=== PATIENT | male | born 1940 | race Caucasian/White ===

== ENCOUNTER 2016-09-18 04:48 | Emergency (ER) | payer OTHER ==
[~2016-09-18] VITALS: Ht 182.9 cm; Wt 57.7 kg
[~2016-09-18 04:48] MED LIST: ADVAIR 250/501 DISK IH; ADVAIR HFA120 INHALA IH; AFEDITAB CR30 MG; ALBUTEROL2.5 MG/3 M IH; ALLER-EASE180 MG PO; ARICEPT10 MG PO; ARICEPT5 MG PO; ASPIR 8181 M1 PO; ASPIRIN81 M1 PO; ASPIRIN81 M2; Advair HFA 115/21 IH; Aricept PO; Aspirin E.C. PO; CEFTIN500 MG PO; CHANTIX1 MG PO; CLOBETASOL PROP60 GM TP; CLONAZEPAM0.125 MG PO; CYMBALTA30 MG PO; CYMBALTA60 MG PO; Cymbalta PO; DONEPEZIL HCL10 MG PO; DURAGESIC100 MICROG; DURAGESIC75 MCG TD; EMBELINE15 GM TP; FENTANYL1 EAC3; FLAGYL500 MG PO; FLOMAX0.4 MG PO; FLORINEF ACETA0.1 MG PO; GABAPENTIN300 MG PO; HYDROCHLOROTH12.5 M3 PO; Keflex PO; LASIX20 MG PO; LEVAQUIN750 MG PO; LEVOFLOXACIN750 MG PO; LEVOTHROID175 MCG; LEVOTHYROXINE175 MCG PO; LEVOTHYROXINE200 MC1 PO; LISINOPRIL; LISINOPRIL20 MG PO; LOW DOSE ASPIRI81 M1 PO; LOW DOSE ASPIRI81 M2 PO; LYRICA50 MG PO; Levothroid,Synthroid PO; MINOCYCLINE HC100 MG PO; NEURONTIN300 MG PO; NEURONTIN400 MG PO; NITROGLYCERIN0.3 MG; NITROSTAT0.3 MG SL; NITROSTAT0.4 MG SL; NORVASC2.5 MG PO; Neurontin PO; OXYBUTYNIN CHLO15 MG PO; OXYCODONE-APAP1 EAC6 PO; OXYCODONE-APAP1 EACH; Omnicef PO; PERCOCET 10/1 TABLET; PERCOCET 10/1 TABLET PO; PERCOCET 5/31 TABLET PO; PERCOCET 7.51 TABLET PO; PREDNISONE10 MG PO; PREDNISONE20 MG PO; PROAIR HFA8.5 GM; PROAIR HFA8.5 GM IH; PROVENTIL,2.5 MG/0.5 IH; PROVENTIL,2.5 MG/3 M IH; Percocet 5/325,Endoc PO; Proair HFA IH; SALT SUPPLEMENT; SODIUM CHLORIDE PO; SODIUM CHLORIDE1 G1 PO; SPIRIVA1 INHALATI IH; SYMBICORT60 INHALAT; SYMBICORT60 INHALAT IH; SYNTHROID150 MCG PO; SYNTHROID175 MCG PO; Senokot S,Pericolace PO; TAMSULOSIN HCL0.4 MG; TAMSULOSIN HCL0.4 MG PO; TEMOVATE 0.05%30 GM TP; THERMOTABS1 TABLET PO; TOPROL XL25 MG PO; TYLENOL EXTRA500 MG PO; TYLENOL REGULA325 MG PO; Temovate 0.05% Cream TP; Theragran PO; VENTOLIN HFA18 GM IH; ZESTRIL5 MG PO; ZITHROMAX250 MG PO; ZOFRAN ODT4 MG PO; Zestril,Prinivil PO; Zithromax PO; [UNRECOGNIZED DRUG - OTHER] TP
[2016-09-18 05:54] LABS: HEMATOCRIT 40.6 % (38.0-50.0); MCH 34.6 PG (29.0-34.0); MCHC 34.7 G/DL (30.0-36.0); MCV 99.8 FL (86-99); MEAN PLAT.VOLUME 9.6 uM^3 (9.0-12.4); PLATELET COUNT 214 K/uL (156-360); RBC DIS.WIDTH-CV 13.6 % (11.8-14.6); RBC DIS.WIDTH-SD 49.9 % (39-53); RED BLOOD COUNT 4.07 M/uL (4.00-5.50); WHITE BLOOD COUNT 6.1 K/uL (4.1-10.2)
[2016-09-18 05:59] LABS: CHLORIDE 99 mEq/L (99-109); POTASSIUM 3.2 mEq/L (3.7-5.4); SODIUM 131 mEq/L (136-147)
[2016-09-18 06:01] LABS: GLUCOSE 72 mg/dL (70-99)
[2016-09-18 06:03] LABS: ANION GAP 11 MEQ/L (2-14); TOTAL BILIRUBIN 0.6 mg/dL (0.0-1.0)
[2016-09-18 06:05] LABS: ALKALINE PHOSPHATASE 44 IU/L (3-129); GFR ESTIMATE (CALCULATED) > 59 mL/min/
[2016-09-18 06:06] LABS: UREA NITROGEN (BUN) 13 mg/dL (9-23)
[2016-09-18 09:39] LABS: C DIFF TOXIN NEGATIVE (NEGATIVE)
[2016-09-18 10:00] LABS: PROBE CHECK PASS; SPECIMEN PROCESSING CONTROL PASS
[2016-09-18 10:22] VITALS: BP 168/94
== END 2016-09-18 10:35 | disposition home or self-care (01) ==
LOC: EME → EDBD 04:48 → EME 04:48
PROVIDERS: Emergency Medicine
DX: R19.7 Diarrhea, unspecified (principal); J45.909 Unspecified asthma, uncomplicated; J44.9 Chronic obstructive pulmonary disease, unspecified; G89.29 Other chronic pain; I10 Essential (primary) hypertension; E03.9 Hypothyroidism, unspecified; G47.30 Sleep apnea, unspecified; F17.200 Nicotine dependence, unspecified, uncomplicated
CPT/HCPCS: 80053; 85027; 86850; 86900; 86901; 87493; 99281; 99285; J2270

== ENCOUNTER 2016-12-01 14:07 | Inpatient (IN) | payer OTHER ==
[~2016-12-01] VITALS: Ht 182.9 cm; Wt 65.8 kg
[2016-12-01 14:47] LABS: HEMATOCRIT 36.7 % (38.0-50.0); MCH 35.1 PG (29.0-34.0); MCHC 34.1 G/DL (30.0-36.0); MEAN PLAT.VOLUME 9.9 uM^3 (9.0-12.4); PLATELET COUNT 156 K/uL (156-360); RBC DIS.WIDTH-CV 14.9 % (11.8-14.6); RBC DIS.WIDTH-SD 57.4 % (39-53); RED BLOOD COUNT 3.56 M/uL (4.00-5.50); WHITE BLOOD COUNT 4.9 K/uL (4.1-10.2)
[2016-12-01 14:59] LABS: ANION GAP 5 MEQ/L (2-14); CHLORIDE 94 MEQ/L (99-109); POTASSIUM 4.7 MEQ/L (3.7-5.4); SAMPLE HEMOLYSIS CHECK 0; SAMPLE ICTERIC CHECK 0; SAMPLE LIPEMIA CHECK 0; SODIUM 125 MEQ/L (136-147); TOTAL BILIRUBIN 0.5 MG/DL (0.0-1.0)
[2016-12-01 15:05] LABS: ALKALINE PHOSPHATASE 51 IU/L (3-129); GFR ESTIMATE (CALCULATED) > 59 mL/min/; GLUCOSE 80 mg/dL (70-99); UREA NITROGEN (BUN) 20 mg/dL (9-23)
[2016-12-01 15:11] LABS: MCV 103.1 FL (86-99)
[2016-12-01 16:32] LABS: ADD MIUA? NO; BILIRUBIN NEGATIVE; BLOOD NEGATIVE; COLOR YELLOW ((YELLOW)); GLUCOSE (STRIP) NEGATIVE; KETONES NEGATIVE; LEUKOCYTES NEGATIVE; NITRITE NEGATIVE; PROTEIN (STRIP) NEGATIVE; SPECIFIC GRAVITY 1.015 (1.000-1.030); UCUL ADDED? NO; UROBILINOGEN 0.2 MG/DL (0.2-1.0)
[2016-12-01 17:00] LABS: LIPASE 8 U/L (1.0-51.0)
[2016-12-01 23:31] VITALS: BP 157/101
[2016-12-01 23:45] VITALS: BP 157/101
[2016-12-02] VITALS (24 sets, daily range): BP systolic 116–186; BP diastolic 64–103
[2016-12-02 00:55] LABS: BASE EXCESS -3.7 mEq/L (-3 to +3); BICARBONATE 22.7 mEq/L (22-26); COMMENTS - BLOOD GASES A+C+; DEVICE VENT; METHEMOGLOBIN 1.3 % (0-1.5); PCO2 45 mm Hg (35-45); PO2 67 mm Hg (80-100); SITE LR; pH 7.31 (7.35-7.45)
[2016-12-02 00:56] LABS: FI02 45 %; MODE SPONT; PEEP 5 CM/H20; PRES. SUPPORT 20 CM/H2O; TOTAL RESP RATE 11 resp/min
[2016-12-02 01:37] LABS: METH RESISTANT S AUREUS PCR NEGATIVE (NEGATIVE)
[2016-12-02 01:45] LABS: PROBE CHECK PASS; SPECIMEN PROCESSING CONTROL PASS
[2016-12-02 06:05] LABS: HEMATOCRIT 37.9 % (38.0-50.0); MCH 35.8 PG (29.0-34.0); MCHC 34.3 G/DL (30.0-36.0); MCV 104.4 FL (86-99); MEAN PLAT.VOLUME 10.4 uM^3 (9.0-12.4); PLATELET COUNT 147 K/uL (156-360); RBC DIS.WIDTH-CV 14.9 % (11.8-14.6); RBC DIS.WIDTH-SD 58.6 % (39-53); RED BLOOD COUNT 3.63 M/uL (4.00-5.50); WHITE BLOOD COUNT 6.6 K/uL (4.1-10.2)
[2016-12-02 06:19] LABS: ANION GAP 7 MEQ/L (2-14); CHLORIDE 98 MEQ/L (99-109); GFR ESTIMATE (CALCULATED) > 59 mL/min/; MAGNESIUM 1.4 mg/dl (1.3-2.7); SAMPLE HEMOLYSIS CHECK 0; SAMPLE ICTERIC CHECK 0; SAMPLE LIPEMIA CHECK 0; SODIUM 130 MEQ/L (136-147); UREA NITROGEN (BUN) 13 mg/dL (9-23)
[2016-12-02 06:21] LABS: GLUCOSE 116 mg/dL (70-99); POTASSIUM 3.7 MEQ/L (3.7-5.4)
[2016-12-03] VITALS (9 sets, daily range): BP systolic 117–161; BP diastolic 60–89
[2016-12-03 06:06] LABS: HEMATOCRIT 38.7 % (38.0-50.0); MCH 35.7 PG (29.0-34.0); MCHC 35.7 G/DL (30.0-36.0); MEAN PLAT.VOLUME 10.3 uM^3 (9.0-12.4); PLATELET COUNT 161 K/uL (156-360); RBC DIS.WIDTH-CV 14.7 % (11.8-14.6); RBC DIS.WIDTH-SD 54.4 % (39-53); RED BLOOD COUNT 3.87 M/uL (4.00-5.50); WHITE BLOOD COUNT 4.6 K/uL (4.1-10.2)
[2016-12-03 06:33] LABS: ANION GAP 4 MEQ/L (2-14); CHLORIDE 98 MEQ/L (99-109); GFR ESTIMATE (CALCULATED) > 59 mL/min/; GLUCOSE 111 mg/dL (70-99); POTASSIUM 3.8 MEQ/L (3.7-5.4); SAMPLE HEMOLYSIS CHECK 0; SAMPLE ICTERIC CHECK 0; SAMPLE LIPEMIA CHECK 0; SODIUM 129 MEQ/L (136-147); UREA NITROGEN (BUN) 9 mg/dL (9-23)
[2016-12-04] VITALS (10 sets, daily range): BP systolic 113–173; BP diastolic 68–91
[2016-12-04 06:24] LABS: HEMATOCRIT 34.9 % (38.0-50.0); MCH 34.7 PG (29.0-34.0); MCHC 34.1 G/DL (30.0-36.0); MCV 101.7 FL (86-99); MEAN PLAT.VOLUME 9.9 uM^3 (9.0-12.4); PLATELET COUNT 153 K/uL (156-360); RBC DIS.WIDTH-CV 14.8 % (11.8-14.6); RBC DIS.WIDTH-SD 56.5 % (39-53); RED BLOOD COUNT 3.43 M/uL (4.00-5.50); WHITE BLOOD COUNT 4.9 K/uL (4.1-10.2)
[2016-12-04 06:55] LABS: ANION GAP 5 MEQ/L (2-14); CHLORIDE 104 MEQ/L (99-109); GFR ESTIMATE (CALCULATED) > 59 mL/min/; GLUCOSE 105 mg/dL (70-99); POTASSIUM 3.6 MEQ/L (3.7-5.4); SAMPLE HEMOLYSIS CHECK 0; SAMPLE ICTERIC CHECK 0; SAMPLE LIPEMIA CHECK 0; SODIUM 134 MEQ/L (136-147); UREA NITROGEN (BUN) 7 mg/dL (9-23)
[2016-12-05 04:16] VITALS: BP 140/83
[2016-12-05 05:51] LABS: HEMATOCRIT 35.6 % (38.0-50.0); MCH 35.3 PG (29.0-34.0); MCHC 34.3 G/DL (30.0-36.0); MCV 102.9 FL (86-99); MEAN PLAT.VOLUME 9.9 uM^3 (9.0-12.4); PLATELET COUNT 166 K/uL (156-360); RBC DIS.WIDTH-CV 14.7 % (11.8-14.6); RBC DIS.WIDTH-SD 56.4 % (39-53); RED BLOOD COUNT 3.46 M/uL (4.00-5.50); WHITE BLOOD COUNT 5.7 K/uL (4.1-10.2)
[2016-12-05 06:31] LABS: ANION GAP 4 MEQ/L (2-14); CHLORIDE 103 MEQ/L (99-109); GFR ESTIMATE (CALCULATED) > 59 mL/min/; GLUCOSE 107 mg/dL (70-99); POTASSIUM 3.9 MEQ/L (3.7-5.4); SAMPLE HEMOLYSIS CHECK 0; SAMPLE ICTERIC CHECK 0; SAMPLE LIPEMIA CHECK 0; SODIUM 132 MEQ/L (136-147); UREA NITROGEN (BUN) 8 mg/dL (9-23)
[2016-12-05 07:26] VITALS: BP 155/84
[2016-12-05 11:22] VITALS: BP 165/93
[2016-12-05] MEDS ORDERED: MORPHINE SULFAT15 MG PO (13:21)
[2016-12-05] MEDS ORDERED: SYNTHROID175 MCG PO (13:22)
== END 2016-12-05 15:25 | disposition home or self-care (01) | DRG 336 ==
LOC: EME 14:07 → 4EAST 22:05 → EME 22:05 → SDC 22:09 → 4WEST 23:32 → 4EAST 23:32 → 4WEST 23:48 → 4EAST 12-04 20:24
PROVIDERS: Surgery
PROC: 0DN80ZZ Release Small Intestine, Open Approach (ICD-10-PCS; principal; 2016-12-01)
DX: K56.5 Intestinal adhesions [bands] with obstruction (postinfection) (principal); K56.7 Ileus, unspecified; J44.9 Chronic obstructive pulmonary disease, unspecified; I10 Essential (primary) hypertension; E03.9 Hypothyroidism, unspecified; F17.200 Nicotine dependence, unspecified, uncomplicated; G47.33 Obstructive sleep apnea (adult) (pediatric); N40.0 Benign prostatic hyperplasia without lower urinary tract symptoms; G62.9 Polyneuropathy, unspecified; M47.812 Spondylosis without myelopathy or radiculopathy, cervical region; E22.2 Syndrome of inappropriate secretion of antidiuretic hormone; I73.00 Raynaud's syndrome without gangrene; Z99.81 Dependence on supplemental oxygen
CPT/HCPCS: 36600; 71010; 74020; 74177; 80048; 80053; 81003; 82803; 83690; 83735; 84100; 84134; 85027; 86900; 86901; 87070; 87077; 87181; 87185; 87186; 87205; 87641; 93005; 94002; 94640; 94640 76; 94799; 99202; 99281; 99285; J0360; J1170; J1644; J2270; J2704; J3010; J7030

== ENCOUNTER 2016-12-12 13:03 | Inpatient (IN) | payer OTHER ==
[~2016-12-12] VITALS: Ht 182.9 cm; Wt 68.2 kg
[~2016-12-12 13:03] MED LIST changes: +MORPHINE SULFAT15 MG PO
[2016-12-12 13:50] LABS: HEMATOCRIT 36.1 % (38.0-50.0); MCH 34.8 PG (29.0-34.0); MCHC 34.9 G/DL (30.0-36.0); MCV 99.7 FL (86-99); MEAN PLAT.VOLUME 8.9 uM^3 (9.0-12.4); RBC DIS.WIDTH-CV 13.7 % (11.8-14.6); RBC DIS.WIDTH-SD 50.9 % (39-53); RED BLOOD COUNT 3.62 M/uL (4.00-5.50); WHITE BLOOD COUNT 9.3 K/uL (4.1-10.2)
[2016-12-12 13:51] LABS: PLATELET COUNT 365 K/uL (156-360)
[2016-12-12 13:53] LABS: CHLORIDE 92 mEq/L (99-109); POTASSIUM 4.2 mEq/L (3.7-5.4); SODIUM 130 mEq/L (136-147)
[2016-12-12 13:55] LABS: GLUCOSE 94 mg/dL (70-99)
[2016-12-12 13:56] LABS: ANION GAP 9 MEQ/L (2-14)
[2016-12-12 13:57] LABS: TOTAL BILIRUBIN 0.2 mg/dL (0.0-1.0)
[2016-12-12 13:59] LABS: ALKALINE PHOSPHATASE 56 IU/L (3-129); GFR ESTIMATE (CALCULATED) > 59 mL/min/
[2016-12-12 14:00] LABS: UREA NITROGEN (BUN) 10 mg/dL (9-23)
[2016-12-12 14:02] LABS: LIPASE 35 U/L (1.0-51.0)
[2016-12-12 14:43] LABS: ADD MIUA? YES; BILIRUBIN NEGATIVE; BLOOD NEGATIVE; COLOR YELLOW ((YELLOW)); GLUCOSE (STRIP) NEGATIVE; KETONES NEGATIVE; LEUKOCYTES NEGATIVE; NITRITE NEGATIVE; PROTEIN (STRIP) NEGATIVE; SPECIFIC GRAVITY 1.014 (1.000-1.030); UROBILINOGEN 0.2 MG/DL (0.2-1.0)
[2016-12-12 15:03] LABS: BACTERIA NONE SEEN /HPF; EPITHELIAL CELLS NONE SEEN /HPF; GRANULAR CASTS 0-5 /LPF; MUCUS TRACE /LPF; RED BLOOD CELLS 0-5 /HPF (0-5); UCUL ADDED? NO; WHITE BLOOD CELLS 0-5 /HPF (0-5)
[2016-12-12 15:36] LABS: D-DIMER ELISA > 4.00 mg/L FEU (< 0.57)
[2016-12-12 22:25] VITALS: BP 152/85
[2016-12-13 01:09] LABS: TROP-I INTERPRETATION NEGATIVE; TROPONIN-I < 0.01 ng/mL (0.0-0.30)
[2016-12-13 04:33] VITALS: BP 127/77
[2016-12-13 06:50] VITALS: BP 146/78
[2016-12-13 08:29] LABS: BASOPHIL COUNT 0.1 K/uL (0-0.1); EOSINOPHIL (%) 4.1 % (0-5); EOSINOPHIL COUNT 0.4 K/uL (0-0.3); HEMATOCRIT 35.6 % (38.0-50.0); IMMATURE GRANULOCYTE COUNT 0.1 K/uL; INSTRUMENT ABS NEUTROPHIL CT 7.5 K/uL; MCH 34.8 PG (29.0-34.0); MCHC 33.4 G/DL (30.0-36.0); MEAN PLAT.VOLUME 9.1 uM^3 (9.0-12.4); MONOCYTE COUNT 0.8 K/uL (0-0.8); NEUTROPHIL (%) 75.6 % (45-76); NEUTROPHIL COUNT 7.5 K/uL (1.8-6.4); PLATELET COUNT 356 K/uL (156-360); RBC DIS.WIDTH-CV 14.4 % (11.8-14.6); RBC DIS.WIDTH-SD 55.4 % (39-53); RED BLOOD COUNT 3.42 M/uL (4.00-5.50); WHITE BLOOD COUNT 9.9 K/uL (4.1-10.2)
[2016-12-13 08:31] LABS: MCV 104.1 FL (86-99)
[2016-12-13 08:35] LABS: TROP-I INTERPRETATION NEGATIVE; TROPONIN-I < 0.01 ng/mL (0.0-0.30)
[2016-12-13 08:41] LABS: ANION GAP 5 MEQ/L (2-14); CHLORIDE 95 MEQ/L (99-109); GFR ESTIMATE (CALCULATED) > 59 mL/min/; GLUCOSE 75 mg/dL (70-99); POTASSIUM 4.9 MEQ/L (3.7-5.4); PREALBUMIN 11.9 mg/dL (10-40); SAMPLE HEMOLYSIS CHECK 0; SAMPLE ICTERIC CHECK 0; SAMPLE LIPEMIA CHECK 0; SODIUM 131 MEQ/L (136-147); UREA NITROGEN (BUN) 10 mg/dL (9-23)
[2016-12-13 10:45] VITALS: BP 130/68
[2016-12-13 15:42] VITALS: BP 133/74
[2016-12-13 19:27] VITALS: BP 166/88
[2016-12-13 23:59] VITALS: BP 159/90
[2016-12-14 03:44] VITALS: BP 154/84
[2016-12-14 06:49] LABS: BASOPHIL COUNT 0.1 K/uL (0-0.1); EOSINOPHIL (%) 4.2 % (0-5); EOSINOPHIL COUNT 0.4 K/uL (0-0.3); HEMATOCRIT 34.8 % (38.0-50.0); IMMATURE GRANULOCYTE (%) 1.2 % (0.0-0.7); IMMATURE GRANULOCYTE COUNT 0.1 K/uL; LYMPHOCYTE COUNT 1.1 K/uL (1.0-2.8); MCH 34.6 PG (29.0-34.0); MCHC 33.9 G/DL (30.0-36.0); MCV 102.1 FL (86-99); MONOCYTE (%) 6.8 % (3-12); MONOCYTE COUNT 0.6 K/uL (0-0.8); NEUTROPHIL (%) 75.5 % (45-76); PLATELET COUNT 342 K/uL (156-360); RBC DIS.WIDTH-SD 52.6 % (39-53); RED BLOOD COUNT 3.41 M/uL (4.00-5.50); WHITE BLOOD COUNT 9.3 K/uL (4.1-10.2)
[2016-12-14 07:09] LABS: ANION GAP 4 MEQ/L (2-14); CHLORIDE 92 MEQ/L (99-109); GFR ESTIMATE (CALCULATED) > 59 mL/min/; GLUCOSE 79 mg/dL (70-99); MAGNESIUM 1.6 mg/dl (1.3-2.7); POTASSIUM 4.3 MEQ/L (3.7-5.4); SAMPLE HEMOLYSIS CHECK 0; SAMPLE ICTERIC CHECK 0; SAMPLE LIPEMIA CHECK 0; SODIUM 128 MEQ/L (136-147); UREA NITROGEN (BUN) 9 mg/dL (9-23)
[2016-12-14 07:51] VITALS: BP 162/91
[2016-12-14 11:42] VITALS: BP 139/77
[2016-12-14 11:42] LABS: POINT-OF-CARE METER ID UU14208750
[2016-12-14 15:51] VITALS: BP 113/71
[2016-12-14 19:30] VITALS: BP 119/68
[2016-12-14 22:52] VITALS: BP 116/70
[2016-12-15 03:47] VITALS: BP 120/65
[2016-12-15 06:19] LABS: HEMATOCRIT 33.8 % (38.0-50.0); MCH 35.8 PG (29.0-34.0); MCHC 35.2 G/DL (30.0-36.0); MCV 101.8 FL (86-99); MEAN PLAT.VOLUME 9.2 uM^3 (9.0-12.4); PLATELET COUNT 308 K/uL (156-360); RBC DIS.WIDTH-CV 13.9 % (11.8-14.6); RBC DIS.WIDTH-SD 51.8 % (39-53); RED BLOOD COUNT 3.32 M/uL (4.00-5.50); WHITE BLOOD COUNT 9.3 K/uL (4.1-10.2)
[2016-12-15 06:50] LABS: ANION GAP 5 MEQ/L (2-14); CHLORIDE 90 MEQ/L (99-109); GFR ESTIMATE (CALCULATED) > 59 mL/min/; GLUCOSE 84 mg/dL (70-99); POTASSIUM 4.4 MEQ/L (3.7-5.4); SAMPLE HEMOLYSIS CHECK 0; SAMPLE ICTERIC CHECK 0; SAMPLE LIPEMIA CHECK 0; SODIUM 128 MEQ/L (136-147); UREA NITROGEN (BUN) 8 mg/dL (9-23)
[2016-12-15 07:30] VITALS: BP 132/78
[2016-12-15 11:15] VITALS: BP 125/75
[2016-12-15 12:07] LABS: C DIFF TOXIN NEGATIVE (NEGATIVE); PROBE CHECK PASS; SPECIMEN PROCESSING CONTROL PASS
[2016-12-15] MEDS ORDERED: MYLICON,MYLANTA80 MG PO ×2 (14:46→14:48)
[2016-12-15] MEDS ORDERED: LEVAQUIN750 MG PO (14:46)
[2016-12-15] MEDS ORDERED: REGLAN5 MG PO (14:46)
[2016-12-15] MEDS ORDERED: PROBIOTIC ACID1 EAC3 PO (14:52)
== END 2016-12-15 15:34 | disposition home health service (06) | DRG 391 ==
LOC: EME 13:03 → EDOF 20:35 → 2EAST 20:35
PROVIDERS: Hospitalist; Internal Medicine; Physician Assistant
DX: K52.9 Noninfective gastroenteritis and colitis, unspecified (principal); J18.9 Pneumonia, unspecified organism; J96.11 Chronic respiratory failure with hypoxia; E46 Unspecified protein-calorie malnutrition; E22.2 Syndrome of inappropriate secretion of antidiuretic hormone; J84.10 Pulmonary fibrosis, unspecified; R18.8 Other ascites; Y95 Nosocomial condition; J44.0 Chronic obstructive pulmonary disease with (acute) lower respiratory infection; E88.09 Other disorders of plasma-protein metabolism, not elsewhere classified; K31.84 Gastroparesis; E03.9 Hypothyroidism, unspecified; F17.200 Nicotine dependence, unspecified, uncomplicated; G47.33 Obstructive sleep apnea (adult) (pediatric); I10 Essential (primary) hypertension; Z99.81 Dependence on supplemental oxygen; N40.0 Benign prostatic hyperplasia without lower urinary tract symptoms; Z80.9 Family history of malignant neoplasm, unspecified; Z82.5 Family history of asthma and other chronic lower respiratory diseases; Z98.1 Arthrodesis status; G62.9 Polyneuropathy, unspecified; L03.311 Cellulitis of abdominal wall; K56.7 Ileus, unspecified; J44.1 Chronic obstructive pulmonary disease with (acute) exacerbation; R60.1 Generalized edema; M62.50 Muscle wasting and atrophy, not elsewhere classified, unspecified site; Z68.20 Body mass index [BMI] 20.0-20.9, adult
CPT/HCPCS: 71275; 74177; 80048; 80053; 80202; 81003; 82948; 83605; 83690; 83735; 83880; 83930; 83935; 84100; 84134; 84484; 85025; 85027; 85379; 87040; 87070; 87077; 87186; 87205; 87493; 93005; 94640; 94640 76; 94799; 99202; 99281; 99285; J0456; J0696; J1644; J1956; J2270; J2405; J2543; J2765; J3010; J3370; J7030; J7050; S0028

== ENCOUNTER 2017-01-07 15:53 | Inpatient (IN) | payer OTHER ==
[~2017-01-07] VITALS: Ht 182.9 cm; Wt 57.7 kg
[~2017-01-07 15:53] MED LIST changes: +MYLICON,MYLANTA80 MG PO; +PROBIOTIC ACID1 EAC3 PO; +REGLAN5 MG PO
[2017-01-07 16:31] LABS: EOSINOPHIL (%) 3.1 % (0-5); EOSINOPHIL COUNT 0.2 K/uL (0-0.3); HEMATOCRIT 36.7 % (38.0-50.0); IMMATURE GRANULOCYTE (%) 0.8 % (0.0-0.7); IMMATURE GRANULOCYTE COUNT 0.1 K/uL; INSTRUMENT ABS NEUTROPHIL CT 3.8 K/uL; LYMPHOCYTE COUNT 1.5 K/uL (1.0-2.8); MCHC 33.2 G/DL (30.0-36.0); MCV 105.2 FL (86-99); MEAN PLAT.VOLUME 8.9 uM^3 (9.0-12.4); MONOCYTE (%) 8.6 % (3-12); MONOCYTE COUNT 0.5 K/uL (0-0.8); NEUTROPHIL COUNT 3.8 K/uL (1.8-6.4); PLATELET COUNT 227 K/uL (156-360); RBC DIS.WIDTH-CV 15.3 % (11.8-14.6); RBC DIS.WIDTH-SD 59.4 % (39-53); RED BLOOD COUNT 3.49 M/uL (4.00-5.50)
[2017-01-07 16:37] LABS: CHLORIDE 101 mEq/L (99-109); POTASSIUM 5.2 mEq/L (3.7-5.4); SODIUM 132 mEq/L (136-147)
[2017-01-07 16:39] LABS: GLUCOSE 85 mg/dL (70-99)
[2017-01-07 16:40] LABS: ANION GAP 6 MEQ/L (2-14)
[2017-01-07 16:41] LABS: TOTAL BILIRUBIN 0.4 mg/dL (0.0-1.0)
[2017-01-07 16:43] LABS: ALKALINE PHOSPHATASE 63 IU/L (3-129); GFR ESTIMATE (CALCULATED) > 59 mL/min/
[2017-01-07 16:44] LABS: UREA NITROGEN (BUN) 10 mg/dL (9-23)
[2017-01-07 16:46] LABS: LIPASE 21 U/L (1.0-51.0)
[2017-01-07 17:52] LABS: PROTHROMBIN TIME 10.9 SEC (10.2-12.9)
[2017-01-07 17:54] LABS: PTT 32.5 SEC (25-37)
[2017-01-07] MEDS ORDERED: GABAPENTIN300 MG PO (18:25)
[2017-01-07] MEDS ORDERED: GAS RELIEF 8080 MG PO (18:26)
[2017-01-07] MEDS ORDERED: KLOR-CON M1010 MEQ PO (18:27)
[2017-01-07 19:09] LABS: C DIFF TOXIN NEGATIVE (NEGATIVE); PROBE CHECK PASS; SPECIMEN PROCESSING CONTROL PASS
[2017-01-07 21:48] VITALS: BP 179/84
[2017-01-08 03:00] VITALS: BP 135/79
[2017-01-08 07:39] LABS: HEMATOCRIT 36.3 % (38.0-50.0); MCH 35.8 PG (29.0-34.0); MCHC 34.2 G/DL (30.0-36.0); MCV 104.9 FL (86-99); MEAN PLAT.VOLUME 9.6 uM^3 (9.0-12.4); PLATELET COUNT 214 K/uL (156-360); RBC DIS.WIDTH-CV 15.3 % (11.8-14.6); RBC DIS.WIDTH-SD 59.1 % (39-53); RED BLOOD COUNT 3.46 M/uL (4.00-5.50); WHITE BLOOD COUNT 5.6 K/uL (4.1-10.2)
[2017-01-08 08:03] LABS: ALKALINE PHOSPHATASE 57 IU/L (3-129); ANION GAP 5 MEQ/L (2-14); CHLORIDE 99 MEQ/L (99-109); GFR ESTIMATE (CALCULATED) > 59 mL/min/; GLUCOSE 73 mg/dL (70-99); POTASSIUM 4.6 MEQ/L (3.7-5.4); SAMPLE HEMOLYSIS CHECK 0; SAMPLE ICTERIC CHECK 0; SAMPLE LIPEMIA CHECK 0; SODIUM 130 MEQ/L (136-147); TOTAL BILIRUBIN 0.5 MG/DL (0.0-1.0); UREA NITROGEN (BUN) 7 mg/dL (9-23)
[2017-01-08 08:47] VITALS: BP 170/72
[2017-01-08 12:12] VITALS: BP 140/75
[2017-01-08 14:55] LABS: PROTHROMBIN TIME 10.7 SEC (10.2-12.9)
[2017-01-08 16:03] LABS: PTT 36.8 SEC (25-37)
[2017-01-08 17:01] VITALS: BP 130/70
[2017-01-08 19:55] VITALS: BP 108/62
[2017-01-08 23:49] VITALS: BP 148/76
[2017-01-09 03:42] VITALS: BP 159/77
[2017-01-09 06:43] LABS: EOSINOPHIL (%) 5.9 % (0-5); EOSINOPHIL COUNT 0.4 K/uL (0-0.3); IMMATURE GRANULOCYTE (%) 0.6 % (0.0-0.7); LYMPHOCYTE COUNT 1.3 K/uL (1.0-2.8); MCH 34.3 PG (29.0-34.0); MCHC 33.1 G/DL (30.0-36.0); MCV 103.6 FL (86-99); MEAN PLAT.VOLUME 9.8 uM^3 (9.0-12.4); MONOCYTE (%) 9.1 % (3-12); MONOCYTE COUNT 0.6 K/uL (0-0.8); NEUTROPHIL (%) 63.1 % (45-76); PLATELET COUNT 217 K/uL (156-360); RBC DIS.WIDTH-SD 57.4 % (39-53); RED BLOOD COUNT 3.38 M/uL (4.00-5.50); WHITE BLOOD COUNT 6.3 K/uL (4.1-10.2)
[2017-01-09 06:50] LABS: PROTHROMBIN TIME 11.1 SEC (10.2-12.9)
[2017-01-09 06:53] LABS: PTT 60.3 SEC (25-37)
[2017-01-09 07:18] LABS: ALKALINE PHOSPHATASE 51 IU/L (3-129); ANION GAP 5 MEQ/L (2-14); CHLORIDE 99 MEQ/L (99-109); GFR ESTIMATE (CALCULATED) > 59 mL/min/; GLUCOSE 79 mg/dL (70-99); MAGNESIUM 1.5 mg/dl (1.3-2.7); POTASSIUM 4.4 MEQ/L (3.7-5.4); SAMPLE HEMOLYSIS CHECK 0; SAMPLE ICTERIC CHECK 0; SAMPLE LIPEMIA CHECK 0; SODIUM 132 MEQ/L (136-147); TOTAL BILIRUBIN 0.5 MG/DL (0.0-1.0); UREA NITROGEN (BUN) 10 mg/dL (9-23)
[2017-01-09 07:20] VITALS: BP 136/77
[2017-01-09 11:05] VITALS: BP 115/66
[2017-01-09 13:41] LABS: INTER. NORMALIZED RATIO 1.1; PROTHROMBIN TIME 11.7 SEC (10.2-12.9)
[2017-01-09 15:19] VITALS: BP 134/74
[2017-01-09 21:22] VITALS: BP 157/78
[2017-01-10] VITALS (7 sets, daily range): BP systolic 117–160; BP diastolic 59–84
[2017-01-10 06:15] LABS: EOSINOPHIL (%) 7.9 % (0-5); EOSINOPHIL COUNT 0.5 K/uL (0-0.3); HEMATOCRIT 33.5 % (38.0-50.0); IMMATURE GRANULOCYTE (%) 0.7 % (0.0-0.7); INSTRUMENT ABS NEUTROPHIL CT 3.1 K/uL; LYMPHOCYTE COUNT 1.4 K/uL (1.0-2.8); MCHC 33.7 G/DL (30.0-36.0); MCV 106.7 FL (86-99); MEAN PLAT.VOLUME 9.8 uM^3 (9.0-12.4); MONOCYTE (%) 12.5 % (3-12); MONOCYTE COUNT 0.7 K/uL (0-0.8); NEUTROPHIL (%) 54.2 % (45-76); NEUTROPHIL COUNT 3.1 K/uL (1.8-6.4); PLATELET COUNT 196 K/uL (156-360); RBC DIS.WIDTH-CV 15.2 % (11.8-14.6); RBC DIS.WIDTH-SD 60.1 % (39-53); RED BLOOD COUNT 3.14 M/uL (4.00-5.50); WHITE BLOOD COUNT 5.7 K/uL (4.1-10.2)
[2017-01-10 06:44] LABS: PROTHROMBIN TIME 11.4 SEC (10.2-12.9)
[2017-01-10 06:46] LABS: PTT 68.4 SEC (25-37)
[2017-01-10 07:03] LABS: ANION GAP 3 MEQ/L (2-14); CHLORIDE 98 MEQ/L (99-109); GFR ESTIMATE (CALCULATED) > 59 mL/min/; GLUCOSE 80 mg/dL (70-99); POTASSIUM 4.5 MEQ/L (3.7-5.4); SAMPLE HEMOLYSIS CHECK 0; SAMPLE ICTERIC CHECK 0; SAMPLE LIPEMIA CHECK 0; SODIUM 134 MEQ/L (136-147); UREA NITROGEN (BUN) 16 mg/dL (9-23)
[2017-01-10 14:26] LABS: PROTHROMBIN TIME 11.3 SEC (10.2-12.9)
[2017-01-11 06:55] LABS: INTER. NORMALIZED RATIO 1.1; PROTHROMBIN TIME 12.1 SEC (10.2-12.9)
[2017-01-11 07:45] VITALS: BP 130/66
[2017-01-11 07:46] LABS: PTT 61.7 SEC (25-37)
[2017-01-11 14:11] LABS: INTER. NORMALIZED RATIO 1.1; PROTHROMBIN TIME 12.2 SEC (10.2-12.9)
[2017-01-11 15:30] VITALS: BP 130/63
[2017-01-12 00:11] VITALS: BP 160/69
[2017-01-12 06:51] LABS: INTER. NORMALIZED RATIO 1.3; PROTHROMBIN TIME 14.3 SEC (10.2-12.9)
[2017-01-12 07:30] VITALS: BP 124/79
[2017-01-12 14:03] LABS: INTER. NORMALIZED RATIO 1.4; PROTHROMBIN TIME 15.6 SEC (10.2-12.9)
[2017-01-12] MEDS ORDERED: COUMADIN7.5 MG PO ×2 (14:58→16:01)
[2017-01-12 16:21] VITALS: BP 124/79
== END 2017-01-12 16:46 | disposition home health service (06) | DRG 388 ==
LOC: EME 15:53 → 2EAST 20:24 → EDOF 20:24 → ENRESERV 20:28 → 2EAST 21:35
PROVIDERS: Emergency Medicine; Internal Medicine; Surgery
DX: K56.5 Intestinal adhesions [bands] with obstruction (postinfection) (principal); I81 Portal vein thrombosis; E22.2 Syndrome of inappropriate secretion of antidiuretic hormone; Z68.1 Body mass index [BMI] 19.9 or less, adult; R18.8 Other ascites; R64 Cachexia; F11.20 Opioid dependence, uncomplicated; I82.890 Acute embolism and thrombosis of other specified veins; J96.11 Chronic respiratory failure with hypoxia; J84.10 Pulmonary fibrosis, unspecified; J44.9 Chronic obstructive pulmonary disease, unspecified; F17.210 Nicotine dependence, cigarettes, uncomplicated; G47.33 Obstructive sleep apnea (adult) (pediatric); D73.5 Infarction of spleen; G89.29 Other chronic pain; E03.9 Hypothyroidism, unspecified; E86.0 Dehydration; I27.2 Other secondary pulmonary hypertension; K59.00 Constipation, unspecified; J45.909 Unspecified asthma, uncomplicated; I73.00 Raynaud's syndrome without gangrene; M41.9 Scoliosis, unspecified; N40.0 Benign prostatic hyperplasia without lower urinary tract symptoms; G62.9 Polyneuropathy, unspecified; I10 Essential (primary) hypertension; I87.2 Venous insufficiency (chronic) (peripheral); K52.9 Noninfective gastroenteritis and colitis, unspecified; Z99.81 Dependence on supplemental oxygen; Z79.01 Long term (current) use of anticoagulants; Z87.01 Personal history of pneumonia (recurrent); F03.90 Unspecified dementia, unspecified severity, without behavioral disturbance, psychotic disturbance, mood disturbance, and anxiety; Z98.1 Arthrodesis status; Z82.5 Family history of asthma and other chronic lower respiratory diseases; Z80.1 Family history of malignant neoplasm of trachea, bronchus and lung
CPT/HCPCS: 71010; 74177; 80048; 80053; 83605; 83690; 83735; 85025; 85027; 85610; 85730; 87493; 94640; 94640 76; 94760; 94799; 97530 GP; 99202; 99281; 99285; J0360; J1644; J2270; J7030

== ENCOUNTER 2017-02-18 16:27 | Observation (INO) | payer OTHER ==
[~2017-02-18] VITALS: Ht 182.9 cm; Wt 61.7 kg
[~2017-02-18 16:27] MED LIST changes: +COUMADIN7.5 MG PO; +GAS RELIEF 8080 MG PO; +KLOR-CON M1010 MEQ PO
[2017-02-18 17:26] LABS: HEMATOCRIT 36.2 % (38.0-50.0); MCH 34.4 PG (29.0-34.0); MCHC 33.4 G/DL (30.0-36.0); MCV 102.8 FL (86-99); MEAN PLAT.VOLUME 10.2 uM^3 (9.0-12.4); PLATELET COUNT 180 K/uL (156-360); RBC DIS.WIDTH-SD 53.6 % (39-53); RED BLOOD COUNT 3.52 M/uL (4.00-5.50); WHITE BLOOD COUNT 5.3 K/uL (4.1-10.2)
[2017-02-18 17:32] LABS: PROTHROMBIN TIME 34.8 SEC (10.2-12.9)
[2017-02-18 17:40] LABS: CHLORIDE 96 mEq/L (99-109); POTASSIUM 4.5 mEq/L (3.7-5.4); SODIUM 134 mEq/L (136-147)
[2017-02-18 17:42] LABS: GLUCOSE 87 mg/dL (70-99)
[2017-02-18 17:43] LABS: ANION GAP 8 MEQ/L (2-14)
[2017-02-18 17:46] LABS: GFR ESTIMATE (CALCULATED) > 59 mL/min/; UREA NITROGEN (BUN) 16 mg/dL (9-23)
[2017-02-18 19:21] LABS: ADD MIUA? YES; BILIRUBIN NEGATIVE; BLOOD SMALL; COLOR YELLOW ((YELLOW)); GLUCOSE (STRIP) NEGATIVE; KETONES NEGATIVE; LEUKOCYTES NEGATIVE; NITRITE NEGATIVE; PROTEIN (STRIP) NEGATIVE; SPECIFIC GRAVITY 1.008 (1.000-1.030); UROBILINOGEN 0.2 MG/DL (0.2-1.0)
[2017-02-18 19:23] LABS: BACTERIA NONE SEEN /HPF; EPITHELIAL CELLS NONE SEEN /HPF; MUCUS NONE SEEN /LPF; RED BLOOD CELLS 0-5 /HPF (0-5); UCUL ADDED? NO; WHITE BLOOD CELLS 0-5 /HPF (0-5)
[2017-02-18] MEDS ORDERED: COUMADIN7.5 MG PO (21:08)
[2017-02-18] MEDS ORDERED: PROAIR HFA8.5 GM IH (21:10)
[2017-02-18] MEDS ORDERED: VITAMIN B-12500 MC5 SL (21:10)
[2017-02-18] MEDS ORDERED: FLORINEF ACETA0.1 MG PO (21:10)
[2017-02-18] MEDS ORDERED: PROBIOTIC1 EAC1 PO (21:10)
[2017-02-18] MEDS ORDERED: SENNA8.6 MG PO (21:10)
[2017-02-18 23:10] VITALS: BP 171/79
[2017-02-18 23:49] LABS: HEMATOCRIT 36.5 % (38.0-50.0)
[2017-02-19 06:04] LABS: HEMATOCRIT 34.6 % (38.0-50.0); MCH 33.7 PG (29.0-34.0); MCHC 32.4 G/DL (30.0-36.0); MCV 104.2 FL (86-99); MEAN PLAT.VOLUME 10.1 uM^3 (9.0-12.4); PLATELET COUNT 156 K/uL (156-360); RBC DIS.WIDTH-CV 13.9 % (11.8-14.6); RBC DIS.WIDTH-SD 53.9 % (39-53); RED BLOOD COUNT 3.32 M/uL (4.00-5.50); WHITE BLOOD COUNT 4.2 K/uL (4.1-10.2)
[2017-02-19 06:18] LABS: INTER. NORMALIZED RATIO 2.5; PROTHROMBIN TIME 28.3 SEC (10.2-12.9)
[2017-02-19 06:28] LABS: ANION GAP 2 MEQ/L (2-14); CHLORIDE 100 MEQ/L (99-109); GFR ESTIMATE (CALCULATED) > 59 mL/min/; GLUCOSE 100 mg/dL (70-99); POTASSIUM 3.7 MEQ/L (3.7-5.4); SAMPLE HEMOLYSIS CHECK 0; SAMPLE ICTERIC CHECK 0; SAMPLE LIPEMIA CHECK 0; SODIUM 136 MEQ/L (136-147); UREA NITROGEN (BUN) 11 mg/dL (9-23)
[2017-02-19 09:38] VITALS: BP 149/81
[2017-02-19 10:46] LABS: HEMATOCRIT 35.6 % (38.0-50.0); MCV 106.6 FL (86-99)
[2017-02-19] MEDS ORDERED: PROTONIX40 MG PO (12:15)
== END 2017-02-19 17:47 | disposition home or self-care (01) ==
LOC: EME 16:27 → EDOF 21:33 → ENRESERV 21:36 → 5WEST 22:21
PROVIDERS: Emergency Medicine; Physician Assistant Medical
DX: K62.5 Hemorrhage of anus and rectum (principal); J96.11 Chronic respiratory failure with hypoxia; J44.9 Chronic obstructive pulmonary disease, unspecified; N40.0 Benign prostatic hyperplasia without lower urinary tract symptoms; I10 Essential (primary) hypertension; I81 Portal vein thrombosis; Z87.01 Personal history of pneumonia (recurrent); E03.9 Hypothyroidism, unspecified; E22.2 Syndrome of inappropriate secretion of antidiuretic hormone; F17.200 Nicotine dependence, unspecified, uncomplicated; Z79.01 Long term (current) use of anticoagulants; I25.10 Atherosclerotic heart disease of native coronary artery without angina pectoris; F03.90 Unspecified dementia, unspecified severity, without behavioral disturbance, psychotic disturbance, mood disturbance, and anxiety; J84.10 Pulmonary fibrosis, unspecified; R10.9 Unspecified abdominal pain; Z86.010 Personal history of colon polyps; G47.33 Obstructive sleep apnea (adult) (pediatric); M79.89 Other specified soft tissue disorders; Z88.8 Allergy status to other drugs, medicaments and biological substances
CPT/HCPCS: 74177; 80048; 81003; 85014; 85018; 85027; 85610; 86850; 86900; 86901; 99281; 99285; C9113; G0378; J3010; J7040

== ENCOUNTER 2017-03-01 17:14 | Observation (INO) | payer OTHER ==
[~2017-03-01] VITALS: Ht 182.9 cm; Wt 60.3 kg
[~2017-03-01 17:14] MED LIST changes: +PROBIOTIC1 EAC1 PO; +PROTONIX40 MG PO; +SENNA8.6 MG PO; +VITAMIN B-12500 MC5 SL
[2017-03-01 18:04] LABS: HEMATOCRIT 38.5 % (38.0-50.0); MCH 33.8 PG (29.0-34.0); RBC DIS.WIDTH-SD 50.9 % (39-53); RED BLOOD COUNT 3.88 M/uL (4.00-5.50); WHITE BLOOD COUNT 6.3 K/uL (4.1-10.2)
[2017-03-01 18:10] LABS: CHLORIDE 96 mEq/L (99-109); POTASSIUM 4.1 mEq/L (3.7-5.4); SODIUM 134 mEq/L (136-147)
[2017-03-01 18:12] LABS: GLUCOSE 93 mg/dL (70-99)
[2017-03-01 18:13] LABS: ANION GAP 9 MEQ/L (2-14)
[2017-03-01 18:15] LABS: GFR ESTIMATE (CALCULATED) > 59 mL/min/
[2017-03-01 18:16] LABS: UREA NITROGEN (BUN) 8 mg/dL (9-23)
[2017-03-01 18:23] LABS: TROP-I INTERPRETATION NEGATIVE; TROPONIN-I < 0.01 ng/mL (0.0-0.30)
[2017-03-01 18:34] LABS: CHLORIDE 96 mEq/L (99-109); POTASSIUM 4.2 mEq/L (3.7-5.4); SODIUM 135 mEq/L (136-147)
[2017-03-01 18:36] LABS: GLUCOSE 94 mg/dL (70-99)
[2017-03-01 18:37] LABS: ANION GAP 11 MEQ/L (2-14)
[2017-03-01 18:38] LABS: TOTAL BILIRUBIN 0.5 mg/dL (0.0-1.0)
[2017-03-01 18:39] LABS: ALKALINE PHOSPHATASE 95 IU/L (3-129)
[2017-03-01 18:40] LABS: GFR ESTIMATE (CALCULATED) > 59 mL/min/
[2017-03-01 18:41] LABS: UREA NITROGEN (BUN) 8 mg/dL (9-23)
[2017-03-01 19:10] LABS: ADD MIUA? NO; BILIRUBIN NEGATIVE; BLOOD NEGATIVE; COLOR STRAW ((YELLOW)); GLUCOSE (STRIP) NEGATIVE; KETONES NEGATIVE; LEUKOCYTES NEGATIVE; NITRITE NEGATIVE; PROTEIN (STRIP) NEGATIVE; SPECIFIC GRAVITY 1.006 (1.000-1.030); UROBILINOGEN 0.2 MG/DL (0.2-1.0)
[2017-03-01 19:11] LABS: UCUL ADDED? NO
[2017-03-01 19:20] LABS: PLAT.SUFFICIENCY ADEQUATE
[2017-03-01 19:21] LABS: MCV 99.2 FL (86-99); PLATELET COUNT 271 K/uL (156-360)
[2017-03-01 21:03] LABS: INTER. NORMALIZED RATIO 3.6
[2017-03-01 21:07] LABS: PROTHROMBIN TIME 41.6 SEC (10.2-12.9)
[2017-03-01] MEDS ORDERED: PROTONIX40 MG PO (23:10)
[2017-03-01] MEDS ORDERED: CLOBETASOL PROP60 GM TP (23:10)
[2017-03-02 05:23] VITALS: BP 172/88
[2017-03-02 08:30] VITALS: BP 180/92
[2017-03-02 09:24] LABS: HEMATOCRIT 40.8 % (38.0-50.0); MCH 33.4 PG (29.0-34.0); MCHC 33.1 G/DL (30.0-36.0); MEAN PLAT.VOLUME 9.1 uM^3 (9.0-12.4); PLATELET COUNT 272 K/uL (156-360); RBC DIS.WIDTH-CV 13.9 % (11.8-14.6); RBC DIS.WIDTH-SD 51.7 % (39-53); RED BLOOD COUNT 4.04 M/uL (4.00-5.50); WHITE BLOOD COUNT 5.8 K/uL (4.1-10.2)
[2017-03-02 09:29] LABS: INTER. NORMALIZED RATIO 3.2; PROTHROMBIN TIME 37.2 SEC (10.2-12.9)
[2017-03-02 12:43] VITALS: BP 178/68
[2017-03-02] MEDS ORDERED: AMLODIPINE BESYL5 MG PO (15:03)
== END 2017-03-02 17:22 | disposition home or self-care (01) ==
LOC: EME 17:14 → EDOF 03-02 00:10 → ENRESERV 03-02 00:13 → 5WEST 03-02 04:29
PROVIDERS: Emergency Medicine; Nurse Practitioner Adult Health
DX: K62.5 Hemorrhage of anus and rectum (principal); I10 Essential (primary) hypertension; F17.210 Nicotine dependence, cigarettes, uncomplicated; J44.9 Chronic obstructive pulmonary disease, unspecified; R00.1 Bradycardia, unspecified; J96.10 Chronic respiratory failure, unspecified whether with hypoxia or hypercapnia; Z99.81 Dependence on supplemental oxygen; J84.10 Pulmonary fibrosis, unspecified; E03.9 Hypothyroidism, unspecified; N40.0 Benign prostatic hyperplasia without lower urinary tract symptoms; G62.9 Polyneuropathy, unspecified; E22.2 Syndrome of inappropriate secretion of antidiuretic hormone; M41.9 Scoliosis, unspecified; G47.33 Obstructive sleep apnea (adult) (pediatric); I87.2 Venous insufficiency (chronic) (peripheral); Z79.01 Long term (current) use of anticoagulants; R79.1 Abnormal coagulation profile; T45.515A Adverse effect of anticoagulants, initial encounter; Z86.718 Personal history of other venous thrombosis and embolism
CPT/HCPCS: 71020; 80048; 80053; 81003; 84484; 85027; 85610; 85730; 94799; 99202; 99281; 99285; G0378; J0360; J7030